=== PATIENT | female | born 1960 | race American Indian/Alaskan Native ===

== ENCOUNTER 2016-11-04 21:16 | Emergency (ER) | payer MEDICARE, OTHER ==
[2016-11-04 22:25] LABS: Basophils % (Auto) 0.7 % (0.0-1.8); Eosinophils % (Auto) 0.9 % (0.0-4.3); Hematocrit 38.2 % (30.3-42.9); Hemoglobin 12.4 gm/dl (10.1-14.3); Mean Corpuscular HGB Conc 33 % (30-34); Platelet Count 340 K/mm3 (140-440); Red Blood Count 5.54 M/mm3 (3.65-5.03); Red Cell Distribution Width 14.5 % (13.2-15.2); White Blood Count 8.8 K/mm3 (4.5-11.0)
[2016-11-04 22:31] LABS: Mean Corpuscular Hemoglobin 22 pg (28-32); Mean Corpuscular Volume 69 fl (79-97)
[2016-11-04 22:34] LABS: Bilirubin,Urine NEG (Negative); Blood,Urine NEG (Negative); Ketones,Urine NEG (Negative); Leukocyte Esterase,Urine NEG (Negative); Nitrite,Urine NEG (Negative); Protein,Urine <15 mg/dL mg/dL (Negative); Urobilinogen,Urine < 2.0 mg/dL (<2.0)
--- NOTE | 2016-11-04 22:38 | Cat Scan Report ---
FINAL REPORT PROCEDURE: CT HEAD/BRAIN WO CON TECHNIQUE: Computerized tomography of the head was performed without contrast material. HISTORY: fall, contusion, syncope COMPARISON: No prior studies are available for comparison. FINDINGS: Skull and scalp: Normal. Paranasal sinuses: Normal. Ventricles and subarachnoid spaces: Normal. Cerebrum: No evidence of hemorrhage, acute infarction or mass . Cerebellum and brainstem: No evidence of hemorrhage, acute infarction or mass. Vasculature: Normal. Comments: None. IMPRESSION: Normal Examination
[2016-11-04 22:43] LABS: BUN/Creatinine Ratio 21.66; Blood Urea Nitrogen 13 mg/dL (7-17); Calcium 9.7 mg/dL (8.4-10.2); Carbon Dioxide 29 mmol/L (22-30); Chloride 97.8 mmol/L (98-107); Glucose 227 mg/dL (65-100); Potassium 3.5 mmol/L (3.6-5.0); Sodium 140 mmol/L (137-145)
[2016-11-04 22:44] LABS: Anion Gap 17 mmol/L
[2016-11-04] MEDS ORDERED: FIORICET PO ONE (22:57)
--- NOTE | 2016-11-04 22:57 | Emergency Department Report ---
ED Fall HPI - General Chief Complaint: Fall Stated Complaint: FALL Time Seen by Provider: 11/04/16 22:27 Source: patient Mode of arrival: Ambulatory - History of Present Illness Initial Comments: Kenny is a 56-year-old female with history of diabetes, hypertension, migraines presenting today because of lightheadedness and fall. Patient states that she was walking at the time and felt lightheaded and fell backwards to the ground hit the back of her head. States that she did not lose consciousness. Denies any chest pain, palpitations, shortness of breath. She has been having headache for the last few days which she states is similar to migraines in the past, has seen a neurologist in the past with a negative MRI. Patient is also complaining of some nausea. - Related Data Home Medications Medication Instructions Recorded Confirmed Last Taken Insulin Detemir [Levemir Flextouch] 50 unit SQ BID 11/04/16 11/04/16 11/04/16 Previous Rx's Medication Instructions Recorded Last Taken Type Butalb/Acetaminophen/Caffeine 1 cap PO Q8HR PRN #14 cap 11/05/16 Unknown Rx [Fioricet 50-300-40 mg CAP] Ibuprofen [Motrin] 600 mg PO Q8H PRN #14 tablet 11/05/16 Unknown Rx Allergies Allergy/AdvReac Type Severity Reaction Status Date / Time egg Allergy Rash Verified 01/06/16 10:32 Milk Containing Products Allergy Rash Verified 01/06/16 10:32 ED Review of Systems ROS: Stated complaint: FALL Other details as noted in HPI Comment: All other systems reviewed and negative Constitutional: denies: chills, fever Respiratory: denies: cough Cardiovascular: denies: chest pain Gastrointestinal: denies: abdominal pain, diarrhea Skin: denies: rash Neurological: denies: numbness, paresthesias, confusion, abnormal gait ED Past Medical Hx - Past Medical History Hx Hypertension: Yes Hx Diabetes: Yes Hx Seizures: Yes Additional medical history: anemia - Surgical History Additional Surgical History: c section. port a cath RIGHT CHEST - Social History Smoking Status: Never Smoker Substance Use Type: None - Medications Home Medications: Home Medications Medication Instructions Recorded Confirmed Last Taken Type Insulin Detemir [Levemir Flextouch] 50 unit SQ BID 11/04/16 11/04/16 11/04/16 History Butalb/Acetaminophen/Caffeine 1 cap PO Q8HR PRN #14 cap 11/05/16 Unknown Rx [Fioricet 50-300-40 mg CAP] Ibuprofen [Motrin] 600 mg PO Q8H PRN #14 tablet 11/05/16 Unknown Rx ED Physical Exam - General Limitations: No Limitations - Head Head exam: Present: atraumatic, normal inspection - Eye Eye exam: Present: normal appearance - ENT ENT exam: Present: normal external ear exam, other (no nasal septal hematoma) - Neck Neck exam: Present: other (mild tenderness, bilaterally, no midline tenderness, no stepoffs, nexus negative) - Respiratory Respiratory exam: Present: normal lung sounds bilaterally. Absent: respiratory distress, chest wall tenderness - Cardiovascular Cardiovascular Exam: Present: regular rate, normal heart sounds - GI/Abdominal GI/Abdominal exam: Present: soft. Absent: distended, tenderness - Extremities Exam Extremities exam: Present: normal inspection, full ROM. Absent: tenderness - Back Exam Back exam: Present: normal inspection. Absent: vertebral tenderness - Neurological Exam Neurological exam: Present: alert, oriented X3 - Psychiatric Psychiatric exam: Present: normal affect - Skin Skin exam: Present: intact ED Course Vital Signs 11/04/16 11/04/16 11/04/16 21:29 22:16 22:28 Temperature 98.8 F Pulse Rate 112 H 103 H Respiratory 20 16 16 Rate Blood Pressure 196/97 Blood Pressure 163/92 [Left] O2 Sat by Pulse 96 99 99 Oximetry 11/04/16 11/05/16 23:23 00:41 Temperature Pulse Rate 92 H Respiratory 14 12 Rate Blood Pressure Blood Pressure 138/72 [Left] O2 Sat by Pulse Oximetry ED Medical Decision Making - Lab Data Result diagrams: 11/04/16 22:08 11/04/16 22:08 - Medical Decision Making labs CT and EKG were preordered CT negative ekg shows sinus rhythm without any ST-T changes. There are no blocks. QTC is at 479. No signs of Brugada syndrome or WPW. labs unremarkable other than mild hyperglycemia, ua dirty sample but no clear infection pain meds for migraine headache, reassess patient reassessed prior to discharge, headache improved, heart rate improved, will dc to home with pmd and neuro fu Critical care attestation.: If time is entered above; I have spent that time in minutes in the direct care of this critically ill patient, excluding procedure time. ED Disposition Clinical Impression: Migraine Qualifiers: Migraine type: without aura Status migrainosus presence: without status migrainosus Intractability: not intractable Qualified Code(s): G43.009 - Migraine without aura, not intractable, without status migrainosus Fall Qualifiers: Encounter type: initial encounter Qualified Code(s): W19.XXXA - Unspecified fall, initial encounter Disposition: DISCHARGED TO HOME OR SELFCARE Is pt being admited?: No Does the pt Need Aspirin: No Condition: Stable Instructions: Migraine Headache (ED), Musculoskeletal Pain (ED) Additional Instructions: Please follow up with her primary care doctor in the next 3-5 days and a routine follow up with a neurologist in the next 1-2 weeks. Return to the ER if your symptoms worsen or you develop new symptoms. Prescriptions: Butalb/Acetaminophen/Caffeine [Fioricet 50-300-40 mg CAP] 1 cap PO Q8HR PRN #14 cap PRN Reason: Headache Ibuprofen [Motrin] 600 mg PO Q8H PRN #14 tablet PRN Reason: Pain Referrals: PRIMARY CARE, [Primary Care Provider] - 3-5 Days
[2016-11-04] MEDS ORDERED: ZOFRAN ODT PO ONE (22:58)
[2016-11-05 00:42] VITALS: BP 138/72
== END 2016-11-05 01:26 | disposition home or self-care (01) ==
LOC: ED 21:16
DX: G43.009 Migraine without aura, not intractable, without status migrainosus (principal); W18.30XA Fall on same level, unspecified, initial encounter; Y93.9 Activity, unspecified; Y92.9 Unspecified place or not applicable; Y99.9 Unspecified external cause status; I10 Essential (primary) hypertension; E11.9 Type 2 diabetes mellitus without complications; Z86.2 Personal history of diseases of the blood and blood-forming organs and certain disorders involving the immune mechanism
CPT/HCPCS: 36415; 70450; 80048; 81001; 82962; 84484; 85025; 93005; 93010; Q0162

== ENCOUNTER 2017-04-01 10:06 | Emergency (ER) | payer MEDICARE, OTHER ==
[2017-04-01 10:44] LABS: Basophils % (Auto) 0.4 % (0.0-1.8); Eosinophils % (Auto) 1.5 % (0.0-4.3); Hematocrit 37.2 % (30.3-42.9); Hemoglobin 11.8 gm/dl (10.1-14.3); Mean Corpuscular HGB Conc 32 % (30-34); Mean Corpuscular Volume 70 fl (79-97); Platelet Count 292 K/mm3 (140-440); Red Blood Count 5.28 M/mm3 (3.65-5.03); Red Cell Distribution Width 14.5 % (13.2-15.2); White Blood Count 7.1 K/mm3 (4.5-11.0)
[2017-04-01 10:48] LABS: Mean Corpuscular Hemoglobin 23 pg (28-32)
[2017-04-01 11:03] LABS: INR 0.99 (0.87-1.13)
[2017-04-01 11:04] LABS: Partial Thromboplastin Time 27.8 Sec. (24.2-36.6)
[2017-04-01 11:06] LABS: Anion Gap 17 mmol/L; Blood Urea Nitrogen 11 mg/dL (7-17); Calcium 9.5 mg/dL (8.4-10.2); Carbon Dioxide 28 mmol/L (22-30); Chloride 101.3 mmol/L (98-107); Glucose 163 mg/dL (65-100); Potassium 4.2 mmol/L (3.6-5.0); Sodium 142 mmol/L (137-145)
--- NOTE | 2017-04-01 11:30 | Cat Scan Report ---
CT HEAD WITHOUT CONTRAST: HISTORY: Left leg weakness, dizziness, headache. Serial contiguous axial images were obtained through the cranium. Intravenous contrast material was not administered. The ventricles are normal in size and appearance. There is no mass effect or midline shift. No areas of abnormally increased or decreased attenuation are seen. No mass lesion is seen. The mastoid air cells and visualized portions of the sinuses are normal. IMPRESSION: Cranial CT scan within normal limits. No significant change since 11/04/16.
[2017-04-01] MEDS ORDERED: NORMODYNE IV ONE (16:37)
--- NOTE | 2017-04-01 16:42 | Emergency Department Report ---
ED Neuro Deficit HPI - General Chief Complaint: High BP Stated Complaint: ELEVATED BP 200/102/LT LEG WEAKNESS/NUMB Time Seen by Provider: 04/01/17 16:06 Source: patient Mode of arrival: Ambulatory Limitations: No Limitations - History of Present Illness Initial Comments: Patient is a 56-year-old female with history of hypertension, hyperlipidemia, seizure disorder who presents to the ER with hypertension and complaints of leg weakness. Patient reports 3 days ago she woke up and had numbness to the left lower leg and is affecting her gait. Patient went to her PMD this morning Dr. Avery and Dr. Hernandez was found to be hypertensive 200/102 was given clonidine 0.1 mg at 9:30 AM and sent to the ER for evaluation. Currently patient reports the leg numbness is intermittent in in her left lower extremity otherwise no other complaints. - Related Data Home Medications: Home Medications Medication Instructions Recorded Confirmed Last Taken Insulin Detemir [Levemir Flextouch] 50 unit SQ BID 11/04/16 11/04/16 11/04/16 Previous Rx's Medication Instructions Recorded Last Taken Type Butalb/Acetaminophen/Caffeine 1 cap PO Q8HR PRN #14 cap 11/05/16 Unknown Rx [Fioricet 50-300-40 mg CAP] Ibuprofen [Motrin] 600 mg PO Q8H PRN #14 tablet 11/05/16 Unknown Rx Allergies/Adverse Reactions: Allergies Allergy/AdvReac Type Severity Reaction Status Date / Time egg Allergy Rash Verified 04/01/17 10:18 Milk Containing Products Allergy Rash Verified 04/01/17 10:18 ED Review of Systems ROS: Stated complaint: ELEVATED BP 200/102/LT LEG WEAKNESS/NUMB Other details as noted in HPI Comment: All other systems reviewed and negative ED Past Medical Hx - Past Medical History Hx Hypertension: Yes Hx Diabetes: Yes Hx Seizures: Yes Additional medical history: anemia - Surgical History Additional Surgical History: c section. port a cath RIGHT CHEST ; REMOVED - Social History Smoking Status: Never Smoker Substance Use Type: None - Medications Home Medications: Home Medications Medication Instructions Recorded Confirmed Last Taken Type Insulin Detemir [Levemir Flextouch] 50 unit SQ BID 11/04/16 11/04/16 11/04/16 History Butalb/Acetaminophen/Caffeine 1 cap PO Q8HR PRN #14 cap 11/05/16 Unknown Rx [Fioricet 50-300-40 mg CAP] Ibuprofen [Motrin] 600 mg PO Q8H PRN #14 tablet 11/05/16 Unknown Rx ED Neuro Physical Exam - General Limitations: No Limitations General appearance: alert, in no apparent distress Suspected Stroke: No - Head Head exam: Present: atraumatic, normocephalic - Eye Eye exam: Present: normal appearance, PERRL, EOMI. Absent: scleral icterus, conjunctival injection, nystagmus Pupils: Present: normal accommodation. Absent: irregular, unequal - ENT ENT exam: Present: mucous membranes moist - Neck Neck exam: Present: normal inspection - Respiratory Respiratory exam: Present: normal lung sounds bilaterally. Absent: respiratory distress - Cardiovascular Cardiovascular Exam: Present: regular rate, normal rhythm. Absent: systolic murmur, diastolic murmur, rubs, gallop - GI/Abdominal GI/Abdominal exam: Present: soft, normal bowel sounds - Extremities Exam Extremities exam: Present: normal inspection, full ROM, normal capillary refill. Absent: tenderness, pedal edema, joint swelling, calf tenderness - Back Exam Back exam: Present: normal inspection - Neurological Exam Neurological exam: Present: alert, oriented X3, CN II-XII intact, abnormal gait (Patient is limping off the L leg), reflexes normal, other (patient reports numbness, but reports her sensation is equal). Absent: motor sensory deficit - Psychiatric Psychiatric exam: Present: normal affect, normal mood - Skin Skin exam: Present: warm, dry, intact, normal color. Absent: rash ED Course Vital Signs 04/01/17 04/01/17 04/01/17 10:12 16:18 16:26 Temperature 98.3 F Pulse Rate 80 Respiratory 17 16 Rate Blood Pressure 199/99 O2 Sat by Pulse 98 98 Oximetry 04/01/17 04/01/17 04/01/17 16:31 16:41 16:51 Temperature Pulse Rate 70 101 H 70 Respiratory 13 20 32 H Rate Blood Pressure 197/82 197/82 164/113 O2 Sat by Pulse 100 97 99 Oximetry 04/01/17 04/01/17 04/01/17 17:00 17:01 17:11 Temperature Pulse Rate 77 80 74 Respiratory 17 20 Rate Blood Pressure 185/99 185/102 185/102 O2 Sat by Pulse 97 98 Oximetry 04/01/17 17:35 Temperature Pulse Rate 71 Respiratory 13 Rate Blood Pressure 182/82 O2 Sat by Pulse 97 Oximetry - Lab Data Result diagrams: 04/01/17 10:29 04/01/17 10:29 Lab Results 04/01/17 04/01/17 04/01/17 Range/Units 10:29 10:29 10:29 WBC 7.1 (4.5-11.0) K/mm3 RBC 5.28 H (3.65-5.03) M/mm3 Hgb 11.8 (10.1-14.3) gm/dl Hct 37.2 (30.3-42.9) % MCV 70 L (79-97) fl MCH 23 L (28-32) pg MCHC 32 (30-34) % RDW 14.5 (13.2-15.2) % Plt Count 292 (140-440) K/mm3 Lymph % (Auto) 31.7 (13.4-35.0) % [place] % (Auto) 6.6 (0.0-7.3) % Eos % (Auto) 1.5 (0.0-4.3) % Baso % (Auto) 0.4 (0.0-1.8) % Lymph # 2.3 (1.2-5.4) K/mm3 [place] # 0.5 (0.0-0.8) K/mm3 Eos # 0.1 (0.0-0.4) K/mm3 Baso # 0.0 (0.0-0.1) K/mm3 Seg Neutrophils % 59.8 (40.0-70.0) % Seg Neutrophils # 4.2 (1.8-7.7) K/mm3 PT 13.0 (12.2-14.9) Sec. INR 0.99 (0.87-1.13) APTT 27.8 (24.2-36.6) Sec. Thrombin Time (15.1-19.6) Sec. Sodium 142 (137-145) mmol/L Potassium 4.2 (3.6-5.0) mmol/L Chloride 101.3 (98-107) mmol/L Carbon Dioxide 28 (22-30) mmol/L Anion Gap 17 mmol/L BUN 11 (7-17) mg/dL Creatinine 0.5 L (0.7-1.2) mg/dL Estimated GFR > 60 ml/min BUN/Creatinine Ratio 22.00 % Glucose 163 H (65-100) mg/dL Calcium 9.5 (8.4-10.2) mg/dL Troponin T < 0.010 (0.00-0.029) ng/mL 04/01/17 Range/Units 10:29 WBC (4.5-11.0) K/mm3 RBC (3.65-5.03) M/mm3 Hgb (10.1-14.3) gm/dl Hct (30.3-42.9) % MCV (79-97) fl MCH (28-32) pg MCHC (30-34) % RDW (13.2-15.2) % Plt Count (140-440) K/mm3 Lymph % (Auto) (13.4-35.0) % [place] % (Auto) (0.0-7.3) % Eos % (Auto) (0.0-4.3) % Baso % (Auto) (0.0-1.8) % Lymph # (1.2-5.4) K/mm3 [place] # (0.0-0.8) K/mm3 Eos # (0.0-0.4) K/mm3 Baso # (0.0-0.1) K/mm3 Seg Neutrophils % (40.0-70.0) % Seg Neutrophils # (1.8-7.7) K/mm3 PT (12.2-14.9) Sec. INR (0.87-1.13) APTT (24.2-36.6) Sec. Thrombin Time 15.6 (15.1-19.6) Sec. Sodium (137-145) mmol/L Potassium (3.6-5.0) mmol/L Chloride (98-107) mmol/L Carbon Dioxide (22-30) mmol/L Anion Gap mmol/L BUN (7-17) mg/dL Creatinine (0.7-1.2) mg/dL Estimated GFR ml/min BUN/Creatinine Ratio % Glucose (65-100) mg/dL Calcium (8.4-10.2) mg/dL Troponin T (0.00-0.029) ng/mL - EKG Data -: EKG Interpreted by Me 04/01/17 1021 Normal sinus rhythm at 74 bpm, QTC 446 ms, normal axis, no LVH, no ST changes, no STEMI - Radiology Data Radiology results: report reviewed, image reviewed Ct head: No acute intracranial abnormality - Medical Decision Making 1638 Repeat BP: 196/82, ordered labetalol 20mg IVP Pt re-evaluated, patient's BP improved to 182/82, patient ambulates to the bathroom without any issue, patient has no other deficit besides intermittent numbness to the L lower leg, but her exam reveals equal strength and equal sensation to the legs. Called out to patient's PMD Dr Hernandez Multiple calls made to PMD's office with no call back. Pt is ambulating and has no neurologic deficits, patient's HTH has improved, patient to continue meds and to follow up with her PMD and a neurologist. Pt instructed to return to the ED if she experiences worsening pain Critical care attestation.: If time is entered above; I have spent that time in minutes in the direct care of this critically ill patient, excluding procedure time. ED Disposition Clinical Impression: Paresthesia and pain of left extremity, Hypertension Disposition: TO HOME OR SELFCARE Is pt being admited?: No Condition: Stable Instructions: Hypertension (ED), Paresthesia (ED) Referrals: PRIMARY CARE, [Primary Care Provider] - 3-5 Days
[2017-04-01 19:03] VITALS: BP 119/98
== END 2017-04-01 19:02 | disposition home or self-care (01) ==
LOC: ED 10:06
DX: I10 Essential (primary) hypertension (principal); R20.0 Anesthesia of skin; R53.1 Weakness; E11.9 Type 2 diabetes mellitus without complications; D64.9 Anemia, unspecified; R56.9 Unspecified convulsions; Z79.4 Long term (current) use of insulin; Z91.012 Allergy to eggs; Z91.011 Allergy to milk products
CPT/HCPCS: 36415; 70450; 80048; 84484; 85025; 85610; 85670; 85730; 93005; 93010; 96374

== ENCOUNTER 2017-07-26 16:13 | Emergency (ER) | payer MEDICARE, OTHER ==
[2017-07-26 17:14] LABS: Bilirubin,Urine NEG (Negative); Blood,Urine NEG (Negative); Ketones,Urine NEG (Negative); Leukocyte Esterase,Urine NEG (Negative); Nitrite,Urine NEG (Negative); Urobilinogen,Urine < 2.0 mg/dL (<2.0)
[2017-07-26 22:17] LABS: Basophils % (Auto) 0.3 % (0.0-1.8); Eosinophils % (Auto) 1.5 % (0.0-4.3); Hematocrit 35.5 % (30.3-42.9); Hemoglobin 11.2 gm/dl (10.1-14.3); Mean Corpuscular HGB Conc 32 % (30-34); Platelet Count 315 K/mm3 (140-440); Red Blood Count 5.14 M/mm3 (3.65-5.03); Red Cell Distribution Width 14.4 % (13.2-15.2); White Blood Count 7.4 K/mm3 (4.5-11.0)
[2017-07-26 22:21] LABS: Mean Corpuscular Hemoglobin 22 pg (28-32); Mean Corpuscular Volume 69 fl (79-97)
[2017-07-26 22:35] LABS: Anion Gap 16 mmol/L; BUN/Creatinine Ratio 16; Blood Urea Nitrogen 8 mg/dL (7-17); Calcium 9.5 mg/dL (8.4-10.2); Carbon Dioxide 28 mmol/L (22-30); Chloride 99.9 mmol/L (98-107); Glucose 147 mg/dL (65-100); Potassium 3.3 mmol/L (3.6-5.0); Sodium 141 mmol/L (137-145)
[2017-07-26 22:39] LABS: Alanine Aminotransferase 12 units/L (7-56); Albumin 4.1 g/dL (3.9-5); Albumin/Globulin Ratio 1.1 %; Alkaline Phosphatase 67 units/L (35-129); Amylase 40 units/L (27-131); Lipase 28 units/L (13-60); Total Protein 7.9 g/dL (6.3-8.2)
[2017-07-26 22:40] LABS: Bilirubin,Direct < 0.2 mg/dL (0-0.2); Bilirubin,Indirect 0.3 mg/dL
[2017-07-27] MEDS ORDERED: NORCO 5/325 PO ONE (03:18)
[2017-07-27] MEDS ORDERED: TORADOL IM ONE (03:18)
[2017-07-27] MEDS ORDERED: K-DUR PO ONE (05:06)
--- NOTE | 2017-07-27 05:10 | Emergency Department Report ---
ED Extremity Problem HPI - General Chief complaint: Pain General Stated complaint: BODY ACHES Time Seen by Provider: 07/27/17 03:14 Source: patient Mode of arrival: Ambulatory Limitations: No Limitations - History of Present Illness Initial comments: 56-year-old female with a past medical history of diabetes, hypertension, seizures, and anemia presents to the hospital complaining of bilateral leg pain times one week. Pain is intermittent and worse with standing and prolonged sitting. Pain radiates to her low back is described as aching and radiates 8/ 10 intensity. Patient denies urinary incontinence, dysuria, urinary frequency, or fever. No leg weakness or numbness reported. No fall or recent trauma reported. Intermittent nausea and vomiting reported. No complaints of abdominal pain. Severity scale (0 -10): 2 - Related Data Home Medications Medication Instructions Recorded Confirmed Last Taken Insulin Detemir [Levemir Flextouch] 50 unit SQ BID 11/04/16 11/04/16 11/04/16 Previous Rx's Medication Instructions Recorded Last Taken Type Butalb/Acetaminophen/Caffeine 1 cap PO Q8HR PRN #14 cap 11/05/16 Unknown Rx [Fioricet 50-300-40 mg CAP] Ibuprofen [Motrin] 600 mg PO Q8H PRN #14 tablet 11/05/16 Unknown Rx HYDROcodone/APAP 5-325 [[place] 1 each PO Q6HR PRN #20 tablet 07/27/17 Unknown Rx 5/325] Ondansetron [Zofran Odt] 4 mg PO Q8HR PRN #20 tab.rapdis 07/27/17 Unknown Rx Allergies Allergy/AdvReac Type Severity Reaction Status Date / Time egg Allergy Rash Verified 04/01/17 10:18 Milk Containing Products Allergy Rash Verified 04/01/17 10:18 ED Review of Systems ROS: Stated complaint: BODY ACHES Other details as noted in HPI Comment: All other systems reviewed and negative Other: Constitutional: No fevers chills Eyes: No eye pain visual changes ENT: No ear pain or throat pain Neck: Denies pain Respiratory: Denies cough wheezing shortness of breath Cardiovascular: Denies chest pain, palpitations, syncope GI: Denies diarrhea, constipation, melena hematochezia : Denies dysuria Musculoskeletal: Denies back pain Skin: Denies rash, lesions, erythema Neurologic: Denies headache, numbness, weakness Psychiatric: Denies suicidal ideation, hallucinations ED Past Medical Hx - Past Medical History Previous Medical History?: Yes Hx Hypertension: Yes Hx Diabetes: Yes Hx Seizures: Yes Additional medical history: anemia - Surgical History Additional Surgical History: c section. port a cath RIGHT CHEST ; REMOVED - Social History Smoking Status: Never Smoker Substance Use Type: None - Medications Home Medications: Home Medications Medication Instructions Recorded Confirmed Last Taken Type Insulin Detemir [Levemir Flextouch] 50 unit SQ BID 11/04/16 11/04/16 11/04/16 History Butalb/Acetaminophen/Caffeine 1 cap PO Q8HR PRN #14 cap 11/05/16 Unknown Rx [Fioricet 50-300-40 mg CAP] Ibuprofen [Motrin] 600 mg PO Q8H PRN #14 tablet 11/05/16 Unknown Rx HYDROcodone/APAP 5-325 [[place] 1 each PO Q6HR PRN #20 tablet 07/27/17 Unknown Rx 5/325] Ondansetron [Zofran Odt] 4 mg PO Q8HR PRN #20 tab.rapdis 07/27/17 Unknown Rx ED Physical Exam - General Limitations: No Limitations - Other Other exam information: General: No limitations, patient is alert in no acute distress Head exam: Atraumatic, normocephalic Eyes exam: Normal appearance, pupils equal reactive to light, extraocular movements intact ENT: Moist mucous membrane, normal oropharynx Neck exam: Normal inspection, full range of motion, no meningismus nontender Respiratory exam: Clear to auscultation bilateral, no wheezes, rales, crackles Cardiovascular: Normal rate and rhythm, normal heart sounds Abdomen: Soft, nondistended, and nontender, with normal bowel sounds, no rebound, or guarding Extremity: Full range of motion normal inspection no deformity, tenderness or edema. Positive pain to back and pain radiating below the knee with straight leg raise of both extremities. 2+ DP pulses Back: Normal Inspection, full range of motion, no tenderness to back area Neurologic: Alert, oriented x3, cranial nerves intact, no motor or sensory deficit Psychiatric: normal affect, normal mood Skin: Warm, dry, intact ED Course Vital Signs 07/26/17 07/27/17 07/27/17 16:38 02:00 04:39 Temperature 98.5 F 98.3 F Pulse Rate 84 83 Respiratory 18 18 Rate Blood Pressure 175/78 Blood Pressure 208/94 184/94 [Left] O2 Sat by Pulse 98 96 Oximetry - Reevaluation(s) Reevaluation #1: 07/27/17 05:08 Patient treated with Toradol, [place]. Potassium also provided ED Medical Decision Making - Lab Data Result diagrams: 07/26/17 21:56 07/26/17 21:56 Lab Results 07/26/17 07/26/17 07/26/17 Range/Units 16:52 21:56 21:56 WBC 7.4 (4.5-11.0) K/mm3 RBC 5.14 H (3.65-5.03) M/mm3 Hgb 11.2 (10.1-14.3) gm/dl Hct 35.5 (30.3-42.9) % MCV 69 L (79-97) fl MCH 22 L (28-32) pg MCHC 32 (30-34) % RDW 14.4 (13.2-15.2) % Plt Count 315 (140-440) K/mm3 Lymph % (Auto) 25.6 (13.4-35.0) % [place] % (Auto) 7.5 H (0.0-7.3) % Eos % (Auto) 1.5 (0.0-4.3) % Baso % (Auto) 0.3 (0.0-1.8) % Lymph # 1.9 (1.2-5.4) K/mm3 [place] # 0.6 (0.0-0.8) K/mm3 Eos # 0.1 (0.0-0.4) K/mm3 Baso # 0.0 (0.0-0.1) K/mm3 Seg Neutrophils % 65.1 (40.0-70.0) % Seg Neutrophils # 4.9 (1.8-7.7) K/mm3 VBG pH (7.320-7.420) Sodium 141 (137-145) mmol/L Potassium 3.3 L (3.6-5.0) mmol/L Chloride 99.9 (98-107) mmol/L Carbon Dioxide 28 (22-30) mmol/L Anion Gap 16 mmol/L BUN 8 (7-17) mg/dL Creatinine 0.5 L (0.7-1.2) mg/dL Estimated GFR > 60 ml/min BUN/Creatinine Ratio 16 % Glucose 147 H (65-100) mg/dL Lactic Acid (0.7-2.0) mmol/L Calcium 9.5 (8.4-10.2) mg/dL Total Bilirubin (0.1-1.2) mg/dL Direct Bilirubin (0-0.2) mg/dL Indirect Bilirubin mg/dL AST (5-40) units/L ALT (7-56) units/L Alkaline Phosphatase (35-129) units/L Total Protein (6.3-8.2) g/dL Albumin (3.9-5) g/dL Albumin/Globulin Ratio % Amylase (27-131) units/L Lipase (13-60) units/L Urine Color Yellow (Yellow) Urine Turbidity Clear (Clear) Urine pH 5.0 (5.0-7.0) Ur Specific [place] 1.021 (1.003-1.030) Urine Protein 30 mg/dl (Negative) mg/dL Urine Glucose (UA) >=500 (Negative) mg/dL Urine Ketones Neg (Negative) mg/dL Urine Blood Neg (Negative) Urine Nitrite Neg (Negative) Urine Bilirubin Neg (Negative) Urine Urobilinogen < 2.0 (<2.0) mg/dL Ur Leukocyte Esterase Neg (Negative) Urine WBC (Auto) 0.0 (0.0-6.0) /HPF Urine RBC (Auto) 0.0 (0.0-6.0) /HPF 07/26/17 07/26/17 07/26/17 Range/Units 21:56 22:02 22:04 WBC (4.5-11.0) K/mm3 RBC (3.65-5.03) M/mm3 Hgb (10.1-14.3) gm/dl Hct (30.3-42.9) % MCV (79-97) fl MCH (28-32) pg MCHC (30-34) % RDW (13.2-15.2) % Plt Count (140-440) K/mm3 Lymph % (Auto) (13.4-35.0) % [place] % (Auto) (0.0-7.3) % Eos % (Auto) (0.0-4.3) % Baso % (Auto) (0.0-1.8) % Lymph # (1.2-5.4) K/mm3 [place] # (0.0-0.8) K/mm3 Eos # (0.0-0.4) K/mm3 Baso # (0.0-0.1) K/mm3 Seg Neutrophils % (40.0-70.0) % Seg Neutrophils # (1.8-7.7) K/mm3 VBG pH 7.340 (7.320-7.420) Sodium (137-145) mmol/L Potassium (3.6-5.0) mmol/L Chloride (98-107) mmol/L Carbon Dioxide (22-30) mmol/L Anion Gap mmol/L BUN (7-17) mg/dL Creatinine (0.7-1.2) mg/dL Estimated GFR ml/min BUN/Creatinine Ratio % Glucose (65-100) mg/dL Lactic Acid 1.60 (0.7-2.0) mmol/L Calcium (8.4-10.2) mg/dL Total Bilirubin 0.50 (0.1-1.2) mg/dL Direct Bilirubin < 0.2 (0-0.2) mg/dL Indirect Bilirubin 0.3 mg/dL AST 13 (5-40) units/L ALT 12 (7-56) units/L Alkaline Phosphatase 67 (35-129) units/L Total Protein 7.9 (6.3-8.2) g/dL Albumin 4.1 (3.9-5) g/dL Albumin/Globulin Ratio 1.1 % Amylase 40 (27-131) units/L Lipase 28 (13-60) units/L Urine Color (Yellow) Urine Turbidity (Clear) Urine pH (5.0-7.0) Ur Specific [place] (1.003-1.030) Urine Protein (Negative) mg/dL Urine Glucose (UA) (Negative) mg/dL Urine Ketones (Negative) mg/dL Urine Blood (Negative) Urine Nitrite (Negative) Urine Bilirubin (Negative) Urine Urobilinogen (<2.0) mg/dL Ur Leukocyte Esterase (Negative) Urine WBC (Auto) (0.0-6.0) /HPF Urine RBC (Auto) (0.0-6.0) /HPF - Radiology Data Radiology results: image reviewed - Medical Decision Making Patient be treated symptomatically for pain. No signs of weakness or urinary incontinence. Pain improved with ED treatment - Differential Diagnosis sciatica, spinal stenosis, fracture, neuropathy, muscle strength Critical Care Time: No Critical care attestation.: If time is entered above; I have spent that time in minutes in the direct care of this critically ill patient, excluding procedure time. ED Disposition Clinical Impression: Bilateral leg pain, Back pain, Chronic hypertension, Diabetes, Hypokalemia Disposition: TO HOME OR SELFCARE Is pt being admited?: No Does the pt Need Aspirin: No Condition: Stable Instructions: Hypertension (ED), Lumbar Radiculopathy (ED), Back Pain (ED), Diabetes Mellitus Type 2 in Adults (ED), Hypokalemia (ED) Additional Instructions: Take the medications as needed for pain. Please return if symptoms worsen. Follow-up with his doctor for further evaluation Prescriptions: HYDROcodone/APAP 5-325 [[place] 5/325] 1 each PO Q6HR PRN #20 tablet PRN Reason: Pain Ondansetron [Zofran Odt] 4 mg PO Q8HR PRN #20 tab.rapdis PRN Reason: Nausea And Vomiting Referrals: ANGELICA ESQUIVEL MD [Primary Care Provider] - 3-5 Days Time of Disposition: 05:12
[2017-07-27 05:56] VITALS: BP 150/65
--- NOTE | 2017-07-27 07:55 | XRay Report ---
AP AND LATERAL LUMBOSACRAL SPINE: History: Lower back pain. Normal bone mineralization. There is straightening of the normal lordosis which could be secondary to muscular spasm. Mild degenerative disc disease is noted at L3-4, L4-5 and L5-S1. Mild diffuse facet arthropathy. No evidence for fracture, subluxation or bone lesion. The visualized sacrum and SI joints are within normal limits. IMPRESSION: Lumbar spondylosis. No acute process.
== END 2017-07-27 05:57 | disposition home or self-care (01) ==
LOC: ED 16:13
DX: M79.605 Pain in left leg (principal); M79.604 Pain in right leg; I10 Essential (primary) hypertension; E11.9 Type 2 diabetes mellitus without complications; E87.6 Hypokalemia; R56.9 Unspecified convulsions; D64.9 Anemia, unspecified; Z91.048 Other nonmedicinal substance allergy status; Z91.011 Allergy to milk products; Z79.4 Long term (current) use of insulin
CPT/HCPCS: 36415; 72100; 80048; 80074; 81001; 82140; 82150; 82805; 83690; 85025; 96372; 99284; J1885

== ENCOUNTER 2017-11-11 19:35 | Emergency (ER) | payer MEDICARE, OTHER ==
[2017-11-11 21:34] VITALS: BP 179/82
--- NOTE | 2017-11-11 22:14 | XRay Report ---
FINAL REPORT PROCEDURE: XR SPINE LUMBOSACRAL 2-3V TECHNIQUE: Lumbar spine radiographs, frontal and lateral views. CPT 84090 HISTORY: back pain COMPARISON: No prior studies are available for comparison. FINDINGS: Alignment: Normal . Vertebral body heights/Disk spaces: Normal . Fracture(s): None . Facets: Normal . Bone mineralization: Normal . IMPRESSION: Normal Examination
[2017-11-11 22:34] LABS: Bilirubin,Urine NEG (Negative); Blood,Urine NEG (Negative); Color,Urine Yellow (Yellow); Mucus,Urine FEW /HPF; Nitrite,Urine NEG (Negative)
--- NOTE | 2017-11-11 23:04 | Emergency Department Report ---
ED Back Pain/Injury HPI - General Chief Complaint: Back Pain/Injury Stated Complaint: BACK PAIN Time Seen by Provider: 11/11/17 22:46 Source: patient, family Limitations: No Limitations - History of Present Illness Initial Comments: Patient here reports that she's been having back pain to her lower back and some nasal congestion 1 week. Denies a fever or chills. Denies any nausea or vomiting. Denies any abdominal pain. Denies any urinary burning frequency or urgency. Denies any coughing, respiratory distress, shortness of breath or chest pain. Patient has a history of diabetes and hypertension. She said her blood sugar this morning was at 190 and is because she is under stress because her mom is sick. Pain is 7 out of 10 and achy located to both sides of her back. Denies any loss of bowel or bladder function. Denies any numbness or tingling to extremities. No OTC for nasal congestion. MD Complaint: back pain Onset/Timin -: week(s) Similar Symptoms Previously: Yes Place: home Radiation: none Severity: mild Severity scale (0 -10): 4 Quality: sharp Consistency: intermittent Improves With: immobilization Worsens With: movement, walking Context: while lifting, turning/twisting, bending Associated Symptoms: cough. denies: confusion, weakness, chest pain, numbness, difficulty walking, difficulty urinating, diaphoresis, incontinence, fever/ chills, constipation, headaches, abdominal pain, loss of appetite, malaise, nausea/vomiting, rash, seizure, shortness of breath, syncope Treatments Prior to Arrival: NSAIDS - Related Data Home Medications Medication Instructions Recorded Confirmed Last Taken Insulin Detemir [Levemir Flextouch] 50 unit SQ BID 11/04/16 11/04/16 11/04/16 Previous Rx's Medication Instructions Recorded Last Taken Type Butalb/Acetaminophen/Caffeine 1 cap PO Q8HR PRN #14 cap 11/05/16 Unknown Rx [Fioricet 50-300-40 mg CAP] Ibuprofen [Motrin] 600 mg PO Q8H PRN #14 tablet 11/05/16 Unknown Rx HYDROcodone/APAP 5-325 [[place] 1 each PO Q6HR PRN #20 tablet 07/27/17 Unknown Rx 5/325] Ondansetron [Zofran Odt] 4 mg PO Q8HR PRN #20 tab.rapdis 07/27/17 Unknown Rx Amoxicillin/Potassium Clav 1 each PO Q12H 10 Days #20 tablet 11/12/17 Unknown Rx [Augmentin 875-125 Tablet] Cetirizine HCl [ZyrTEC] 10 mg PO QAM 14 Days #14 capsule 11/12/17 Unknown Rx Fluticasone [Flonase] 1 spray NS QDAY 14 Days #1 bottle 11/12/17 Unknown Rx traMADol [Ultram] 50 mg PO Q6HR PRN #12 tablet 11/12/17 Unknown Rx Allergies Allergy/AdvReac Type Severity Reaction Status Date / Time egg Allergy Rash Verified 04/01/17 10:18 Milk Containing Products Allergy Rash Verified 04/01/17 10:18 ED Review of Systems ROS: Stated complaint: BACK PAIN Other details as noted in HPI Comment: All other systems reviewed and negative Constitutional: no symptoms reported Eyes: denies: eye pain, eye discharge ENT: congestion. denies: ear pain, throat pain Respiratory: no symptoms reported Cardiovascular: denies: chest pain, palpitations, dyspnea on exertion, orthopnea , edema, syncope, paroxysmal nocturnal dyspnea Gastrointestinal: denies: abdominal pain, nausea, vomiting, diarrhea, constipation, hematemesis, melena, hematochezia Genitourinary: denies: urgency, dysuria, frequency, hematuria, discharge Musculoskeletal: back pain. denies: joint swelling, arthralgia, myalgia Skin: denies: rash Neurological: denies: headache, numbness, paresthesias, abnormal gait, vertigo ED Past Medical Hx - Past Medical History Previous Medical History?: Yes Hx Hypertension: Yes Hx Diabetes: Yes Hx Seizures: Yes Additional medical history: anemia - Surgical History Past Surgical History?: Yes Additional Surgical History: c section. port a cath RIGHT CHEST ; REMOVED - Family History Family history: diabetes, hypertension - Social History Smoking Status: Never Smoker Substance Use Type: None - Medications Home Medications: Home Medications Medication Instructions Recorded Confirmed Last Taken Type Insulin Detemir [Levemir Flextouch] 50 unit SQ BID 11/04/16 11/04/16 11/04/16 History Butalb/Acetaminophen/Caffeine 1 cap PO Q8HR PRN #14 cap 11/05/16 Unknown Rx [Fioricet 50-300-40 mg CAP] Ibuprofen [Motrin] 600 mg PO Q8H PRN #14 tablet 11/05/16 Unknown Rx HYDROcodone/APAP 5-325 [[place] 1 each PO Q6HR PRN #20 tablet 07/27/17 Unknown Rx 5/325] Ondansetron [Zofran Odt] 4 mg PO Q8HR PRN #20 tab.rapdis 07/27/17 Unknown Rx Amoxicillin/Potassium Clav 1 each PO Q12H 10 Days #20 tablet 11/12/17 Unknown Rx [Augmentin 875-125 Tablet] Cetirizine HCl [ZyrTEC] 10 mg PO QAM 14 Days #14 capsule 11/12/17 Unknown Rx Fluticasone [Flonase] 1 spray NS QDAY 14 Days #1 bottle 11/12/17 Unknown Rx traMADol [Ultram] 50 mg PO Q6HR PRN #12 tablet 11/12/17 Unknown Rx ED Physical Exam - General Limitations: No Limitations General appearance: alert, in no apparent distress - Head Head exam: Present: atraumatic, normocephalic, normal inspection - Eye Eye exam: Present: normal appearance, PERRL, EOMI. Absent: periorbital swelling , periorbital tenderness Pupils: Present: normal accommodation - ENT ENT exam: Present: normal orophraynx, mucous membranes moist, normal external ear exam, other (bilateral nasal mucosal congested with clear drainage. Negative maxillary or frontal sinus tenderness.). Absent: TM's normal bilaterally (bilateral TM congested without erythema) - Neck Neck exam: Present: normal inspection, other (no C-spine tenderness). Absent: tenderness, meningismus, lymphadenopathy, thyromegaly - Respiratory Respiratory exam: Present: normal lung sounds bilaterally. Absent: respiratory distress, wheezes, rales, rhonchi, stridor, chest wall tenderness, accessory muscle use, decreased breath sounds, prolonged expiratory - Cardiovascular Cardiovascular Exam: Present: regular rate, normal rhythm, normal heart sounds. Absent: systolic murmur, diastolic murmur - GI/Abdominal GI/Abdominal exam: Present: soft, normal bowel sounds. Absent: distended, tenderness, guarding, rebound, rigid, bruit, pulsatile mass, hernia - Extremities Exam Extremities exam: Present: normal inspection, full ROM, normal capillary refill , other (clubbing, cyanosis or edema. +2 pulses to all extremities. No neurovascular compromise. Patient able to ambulate without any difficulties. + 5 movement of all extremities). Absent: tenderness, calf tenderness - Back Exam Back exam: Present: normal inspection, full ROM. Absent: tenderness, CVA tenderness (R), CVA tenderness (L), muscle spasm, paraspinal tenderness, vertebral tenderness, rash noted - Expanded Back Exam Expanded Back exam: Absent: saddle anesthesia Back exam: Negative Straight Leg Raising: Left, Right - Neurological Exam Neurological exam: Present: alert, oriented X3, normal gait, reflexes normal, other (no focal neurological deficit.). Absent: motor sensory deficit - Psychiatric Psychiatric exam: Present: normal affect, normal mood - Skin Skin exam: Present: warm, dry, intact, normal color. Absent: rash ED Course Vital Signs 11/11/17 21:33 Temperature 99.6 F Pulse Rate 82 Respiratory 20 Rate Blood Pressure 179/82 [Left] O2 Sat by Pulse 99 Oximetry - Reevaluation(s) Reevaluation #1: 11/12/17 00:42 Patient given Percocet 5/325 2 tablets for back pain. I discussed with her that a urinalysis was negative for any urinary tract infection but she has glucose and protein in her urine. Patient says that she is been managed by her primary care physician and will see her primary care physician next week. She said her blood sugar was 190 today and she checks it every morning. Patient is on medication for blood pressure and diabetes. ED Medical Decision Making - Lab Data Lab Results 11/11/17 Range/Units 22:02 Urine Color Yellow (Yellow) Urine Turbidity Clear (Clear) Urine pH 7.0 (5.0-7.0) Ur Specific [place] 1.017 (1.003-1.030) Urine Protein 100 mg/dl (Negative) mg/dL Urine Glucose (UA) >=500 (Negative) mg/dL Urine Ketones Neg (Negative) mg/dL Urine Blood Neg (Negative) Urine Nitrite Neg (Negative) Urine Bilirubin Neg (Negative) Urine Urobilinogen 4.0 (<2.0) mg/dL Ur Leukocyte Esterase Neg (Negative) Urine WBC (Auto) 3.0 (0.0-6.0) /HPF Urine RBC (Auto) 2.0 (0.0-6.0) /HPF U Epithel Cells (Auto) 2.0 (0-13.0) /HPF Urine Mucus Few /HPF - Radiology Data Radiology results: report reviewed X-ray of the lumbar spine reveal no acute abnormalities. - Medical Decision Making ED course: Pt here complaining and off nasal congestion and low back pain. She' s been experiencing these for over a week. Patient with multiple comorbidities and fontanelle upper respiratory tract infection. Patient also with lower back pain with urinalysis negative for urinary tract infection, she does have glucose in her urine and protein in her urine which she says she's been managed by her primary care physician and that is not new for her. She says that her last hemoglobin A1c was elevated and her blood sugar today was at 190 and she is very stressed out because she is taking care of her sick mother. Patient denies any head injury to back and she says she has a history of back pain. X- ray of lumbar spine reveal normal x-ray. I discussed diagnostic this, x-ray results and urinalysis with patient and I told her she'll need to follow-up with her primary care physician to manage her diabetes and her high blood pressure. I discussed the patient she needs to follow-up with orthopedic doctor he guarding chronic back pain to have her primary care doctor refer her to a specialist for her back pain. Patient was understanding the discharge instruction and treatment plan and discharged home with prescription for Ultram , Augmentin, Flonase and Zyrtec. Critical care attestation.: If time is entered above; I have spent that time in minutes in the direct care of this critically ill patient, excluding procedure time. ED Disposition Clinical Impression: Acute exacerbation of chronic low back pain, Glucosuria, Elevated blood- pressure reading, without diagnosis of hypertension Proteinuria Qualifiers: Proteinuria type: unspecified Qualified Code(s): R80.9 - Proteinuria, unspecified Upper respiratory infection Qualifiers: URI type: unspecified URI Qualified Code(s): J06.9 - Acute upper respiratory infection, unspecified Disposition: DC-01 TO HOME OR SELFCARE Is pt being admited?: No Does the pt Need Aspirin: No Condition: Stable Instructions: Upper Respiratory Infection (ED), Hypertension (ED), Back Pain ( ED) Additional Instructions: Please follow-up with your primary care physician on Tuesday for multiple medical problems glucose in urine, protein in your urine. Keep a lot of the blood pressure over the weekend to take to primary care follow-up. Please do not drive or operate heavy machinery while taking Ultram as this medication causes drowsiness. Take Zyrtec and Flonase for nasal congestion I will put urine antibiotic for upper respiratory tract infection since you have multiple comorbidities. Please take antibiotic as prescribed. Prescriptions: Amoxicillin/Potassium Clav [Augmentin 875-125 Tablet] 1 each PO Q12H 10 Days # 20 tablet Cetirizine HCl [ZyrTEC] 10 mg PO QAM 14 Days #14 capsule Fluticasone [Flonase] 1 spray NS QDAY 14 Days #1 bottle traMADol [Ultram] 50 mg PO Q6HR PRN #12 tablet PRN Reason: Pain Referrals: your, primary care physician [Other] - 11/14/17
[2017-11-12] MEDS ORDERED: PERCOCET 5/325 PO ONE (00:18)
== END 2017-11-12 01:28 | disposition home or self-care (01) ==
LOC: ED 19:35
DX: M54.5 Low back pain (principal); G89.29 Other chronic pain; R80.9 Proteinuria, unspecified; J06.9 Acute upper respiratory infection, unspecified; I10 Essential (primary) hypertension; E11.9 Type 2 diabetes mellitus without complications; R56.9 Unspecified convulsions; D64.9 Anemia, unspecified; Z79.4 Long term (current) use of insulin; Z91.011 Allergy to milk products; Z91.012 Allergy to eggs
CPT/HCPCS: 72100; 81001; 99284

== ENCOUNTER 2020-09-15 10:37 | Outpatient (CLI) | payer MEDICARE ==
--- NOTE | 2020-09-17 12:45 | Mammography Report ---
DIGITAL SCREENING MAMMOGRAM WITH CAD, 09/17/2020 CLINICAL INFORMATION / INDICATION: Routine screening mammography. TECHNIQUE: Digital bilateral 2D mammography was obtained in the craniocaudal and mediolateral obliqu e projections. This examination was interpreted with the benefit of Computer-Aided Detection analysis . COMPARISON: 04/05/2016 FINDINGS: Breast Density: The breasts are heterogeneously dense, which may obscure small masses. No dominant mass, suspicious calcifications, or architectural distortion in either breast. Right Port-A-Cath has been removed. Bilateral surgical changes and nodularity are stable. Benign-appe aring calcifications are again noted, particularly on the right. IMPRESSION: No mammographic evidence of malignancy. Follow up recommendation: Routine yearly BI-RADS Category 2: Benign. A "normal" or negative report should not discourage follow up or biopsy of a clinically significant f inding. A written summary of these findings will be mailed to the patient. The patient will be entered into a mammography reporting system which will generate a reminder letter for the patient's next appointmen t at the appropriate interval. The [employer] recommends yearly mammograms starting at age 40 and continuing as l abdiel as a woman is in good health. Breast MRI is recommended for women with an approximate 20-25% or greater lifetime risk of breast cancer, including women with a strong family history of breast or ova john cancer or who have been treated for Hodgkin's disease. Signer Name: Mt Miller MD Signed: 09/17/2020 12:40 PM Workstation Name: [id number]
== END 2020-09-15 10:38 | disposition home or self-care (01) ==
LOC: SPVWC 10:37
PROVIDERS: ATTEND Internal Medicine
DX: Z12.31 Encounter for screening mammogram for malignant neoplasm of breast (principal)
CPT/HCPCS: 77067